=== PATIENT | female | born 1980 | race Caucasian/White ===

== ENCOUNTER 2019-06-08 12:59 | Emergency (ER) | payer OTHER ==
[~2019-06-08] VITALS: Ht 170.1 cm; Wt 59.0 kg
== END 2019-06-08 14:36 | disposition left against medical advice (07) ==
LOC: ED 12:59
DX: R09.89 Other specified symptoms and signs involving the circulatory and respiratory systems (principal); R50.9 Fever, unspecified; Z53.21 Procedure and treatment not carried out due to patient leaving prior to being seen by health care provider